=== PATIENT | male | born 2000 | race Caucasian/White ===

== ENCOUNTER → 2022-02-18 16:45 | Outpatient (CLI) | payer OTHER, SELFPAY ==
--- NOTE | ~2022-02-18 | MR_ITS ---
EXAMINATION: MR brain/brain stem wo con DATE: 02/18/2022 17:33 INDICATION: Severe headache during sexual intercourse. TECHNIQUE: Magnetic resonance imaging (MRI) of the brain and brainstem was performed without intraven ous contrast. COMPARISON: None. FINDINGS: There is no intracranial hemorrhage, acute infarction, or abnormal intracranial mass lesion . The ventricles are normal in size. The paranasal sinuses are clear. The mastoid air cells are tato l. The orbits are normal. IMPRESSION: 1. Normal brain. Reviewed, dictated and finalized at location A. IMPRESSION: 1. Normal brain.
== END ==
PROVIDERS: PCP Family Medicine; Visit Provider Nurse Practitioner Family
DX: G44.82 Headache associated with sexual activity (principal)
CPT/HCPCS: 70551

== ENCOUNTER → 2023-10-05 15:05 | Outpatient (REF) | payer OTHER, SELFPAY | LOC: ANHLAB 15:05 | PROVIDERS: PCP Family Medicine; Visit Provider Plastic Surgery | DX: L72.11 Pilar cyst (principal) | CPT/HCPCS: 88305 ==